=== PATIENT | female | born 1940 | race Caucasian/White ===

== ENCOUNTER 2018-04-11 06:05 | Observation (INO) | payer MEDICARE ==
[~2018-04-11] VITALS: Ht 160 cm; Wt 106.6 kg
[~2018-04-11 06:05] MED LIST: ATEN25 PO; Aspirin EC81 MG PO; B-121000 MC2 PO; CALCIUM CITRATE +D PO; CEPHALEXIN PO; CLEM1.34 PO; Isosorbide Mono60 MG PO; LEVO-T150 MCG PO; LEVO-T175 MCG PO; LISI20 PO; MULTIVITAMIN PO; NAPR500EC PO; NITR.4TPA TD; NITR.8TP TOP; NITR100CA PO; Nitroglycerin0.4 MG SL; Omeprazole20 M1 PO; PARO20 PO; Pyridium100 MG PO; SIMV10 PO; TRAM50 PO; Toviaz8 MG PO; VALA500 PO; VIT D3 PO
[2018-04-12] MEDS ORDERED: DOCU100 PO (08:06)
[2018-04-12] MEDS ORDERED: HYDR1TAB94 PO (08:07)
== END 2018-04-12 10:15 | disposition home or self-care (01) ==
LOC: ORSCMMR 06:05 → ORD 07:30 → ORSCMMR 07:30 → SURS 10:10 → ORSCMMR 10:11 → SURS 10:11
PROVIDERS: Surgery
PROC: 0HTU0ZZ Resection of Left Breast, Open Approach (ICD-10-PCS; principal; 2018-04-11 07:30)
DX: D05.12 Intraductal carcinoma in situ of left breast (principal); K21.9 Gastro-esophageal reflux disease without esophagitis; M19.90 Unspecified osteoarthritis, unspecified site; E78.5 Hyperlipidemia, unspecified; F32.9 Major depressive disorder, single episode, unspecified; I25.10 Atherosclerotic heart disease of native coronary artery without angina pectoris; E66.9 Obesity, unspecified; G47.33 Obstructive sleep apnea (adult) (pediatric); Z99.89 Dependence on other enabling machines and devices; Z85.3 Personal history of malignant neoplasm of breast; Z88.2 Allergy status to sulfonamides; Z79.899 Other long term (current) drug therapy; Z87.891 Personal history of nicotine dependence; Z98.890 Other specified postprocedural states
CPT/HCPCS: 88307; 96372; 96374; G0378; J0690; J1650; J1885; J2250; J2405; J3010; J7120

== ENCOUNTER 2018-08-06 09:39 | Day surgery (SDC) | payer MEDICARE ==
[~2018-08-06] VITALS: Ht 160 cm; Wt 108.3 kg
[~2018-08-06 09:39] MED LIST changes: +CEPH500 PO; +Calcium Citrat1 EA10 PO; +DIPH50 PO; +DOCU100 PO; +HYDR1TAB94 PO; +LETR2.5 PO; +MULTI-DAY PLUS1 EAC1 PO; +Simvastatin20 MG PO; +VITAMIN D32000 UNIT PO; +ZESTRIL40 MG PO
--- NOTE | 2018-08-06 10:51 | NUR ---
08/06/18 1051 Kanika Mahajan O2 AT 10L PER FACE MASK CO2 LINE HOOKED TO MONITOR ALSO
== END 2018-08-06 11:43 | disposition home or self-care (01) ==
LOC: ORSCSDS 09:39
PROVIDERS: Internal Medicine Gastroenterology
PROC: 0DBM8ZX Excision of Descending Colon, Via Natural or Artificial Opening Endoscopic, Diagnostic (ICD-10-PCS; principal; 2018-08-06 11:00)
DX: Z12.11 Encounter for screening for malignant neoplasm of colon (principal); K63.5 Polyp of colon; K63.89 Other specified diseases of intestine; K57.30 Diverticulosis of large intestine without perforation or abscess without bleeding; I25.10 Atherosclerotic heart disease of native coronary artery without angina pectoris; I10 Essential (primary) hypertension; E78.5 Hyperlipidemia, unspecified; G47.33 Obstructive sleep apnea (adult) (pediatric); F32.9 Major depressive disorder, single episode, unspecified; E05.00 Thyrotoxicosis with diffuse goiter without thyrotoxic crisis or storm; Z98.84 Bariatric surgery status; Z87.891 Personal history of nicotine dependence; Z79.82 Long term (current) use of aspirin; Z79.899 Other long term (current) drug therapy; E66.01 Morbid (severe) obesity due to excess calories; Z68.41 Body mass index [BMI] 40.0-44.9, adult
CPT/HCPCS: 88305; J7120

== ENCOUNTER 2018-09-07 14:50 | Emergency (ER) | payer MEDICARE ==
[~2018-09-07] VITALS: Ht 160 cm; Wt 59.0 kg
[2018-09-07] MEDS ORDERED: DOXA4 PO (15:38)
[2018-09-07 15:43] LABS: BASOPHILS ABSOLUTE AUTO 0.02 K/mm3 (0.00-0.23); BASOPHILS PERCENT AUTO 0 % (0-2); EOSINOPHILS ABSOLUTE AUTO 0.09 K/mm3 (0.00-0.68); EOSINOPHILS PERCENT AUTO 1 % (0-6); Hematocrit 44.3 % (33.0-51.0); Hemoglobin 14.2 g/dL (11.5-16.0); IMMATURE GRAN ABSOLUTE AUTO 0.04 K/mm3 (0.00-0.10); IMMATURE GRAN PERCENT AUTO 1 % (0-1); LYMPHOCYTES ABSOLUTE AUTO 1.08 K/mm3 (0.84-5.20); LYMPHOCYTES PERCENT AUTO 17 % (21-46); MONOCYTES ABSOLUTE AUTO 0.79 K/mm3 (0.16-1.47); MONOCYTES PERCENT AUTO 12 % (4-13); Mean Corpuscular HGB 29.4 pg (26.0-34.0); Mean Corpuscular HGB Conc 32.1 g/dL (31.5-36.5); Mean Corpuscular Volume 92 fL (80-100); Mean Platelet Volume 9.5 fL (9.1-12.4); NEUTROPHILS ABSOLUTE AUTO 4.52 K/mm3 (1.96-9.15); NEUTROPHILS PERCENT AUTO 69 % (41-73); Platelet Count 335 K/mm3 (150-400); RDW Coefficient Variation 13.3 % (11.7-14.2); Red Blood Cell Count 4.83 M/mm3 (3.80-5.20); White Blood Cell Count 6.54 K/mm3 (4.00-11.30)
[2018-09-07 16:09] LABS: Bilirubin, Total 0.8 mg/dL (0.1-1.0); Bun/Creatinine Ratio 15.3 (12.0-20.0); Calcium, Blood 8.9 mg/dL (8.5-10.1); Creatinine, Blood 1.31 mg/dL (0.40-1.00); Globulin, Blood 4.1 g/dL (2.2-4.0); Potassium, Blood 3.7 mmol/L (3.5-5.5); Total Protein, Blood 8.1 g/dL (6.4-8.2)
[2018-09-07] MEDS ORDERED: ONDA4ODT MM (19:10)
== END 2018-09-07 19:25 | disposition home or self-care (01) ==
LOC: ER 14:50
PROVIDERS: Emergency Medicine
DX: R11.2 Nausea with vomiting, unspecified (principal); R19.7 Diarrhea, unspecified; E86.0 Dehydration; Z88.2 Allergy status to sulfonamides; Z79.899 Other long term (current) drug therapy; Z79.82 Long term (current) use of aspirin; Z87.891 Personal history of nicotine dependence
CPT/HCPCS: 36415; 74176; 80053; 83690; 85025; 96361; 96374; 99284-25; J2405; J7120

== ENCOUNTER 2019-04-10 08:05 | Day surgery (SDC) | payer MEDICARE ==
[~2019-04-10] VITALS: Ht 160 cm; Wt 111.0 kg
[~2019-04-10 08:05] MED LIST changes: +CARV3.125 PO; +DOXA4 PO; +ONDA4ODT MM
--- NOTE | 2019-04-10 14:05 | NUR ---
DISCHARGE PT REMAINED A&OX3 AND DENIED ANY PAIN DURING RECOVERY. PT ABLE TO DRESS SELF WITH HELP FROM FAMILY MEMBER. IV DC'D WITH CANULA IN TACT. DISCHARGE PAPERWORK GONE OVER WITH PT AND FAMILY MEMBER. PT AND FAMILY MEMBER VERBALLY STATED THE UNDERSTANDING OF THE DISCHARGE EDUCATION GIVEN AND DENIED ANY QUESTIONS AT THIS TIME. PT WHEELED OUT BY ALTHEA CARREON.
--- NOTE | 2019-04-10 15:16 | NUR ---
TR BAND REMOVED AND REPLACED WITH A CLOTH DOT AND WHITE BOARD. R RADIAL SITE CDI-NO HEAMTOMA NOTED ON DICHARGE.
== END 2019-04-10 14:10 | disposition home or self-care (01) ==
LOC: MHTC 08:05
DX: I25.10 Atherosclerotic heart disease of native coronary artery without angina pectoris (principal); M19.90 Unspecified osteoarthritis, unspecified site; E66.9 Obesity, unspecified; E78.5 Hyperlipidemia, unspecified; I10 Essential (primary) hypertension; E89.0 Postprocedural hypothyroidism; G47.33 Obstructive sleep apnea (adult) (pediatric); Z99.89 Dependence on other enabling machines and devices; Z79.82 Long term (current) use of aspirin; Z87.891 Personal history of nicotine dependence; Z88.2 Allergy status to sulfonamides
CPT/HCPCS: 85347; 93454; 93571; 99152; 99153; C1769; C1887; C1894; J1644; J2250; J3010; J7030; Q9967

== ENCOUNTER → 2019-10-28 | Outpatient (CLI) | payer MEDICARE ==
[2019-10-29 19:25] LABS: Adenovirus F 40/41 Not Detected (NOT DETECT); Astrovirus Not Detected (NOT DETECT); Campylobacter Sp Not Detected (NOT DETECT); Cryptosporidium Not Detected (NOT DETECT); Cyclospora Cayetanensis Not Detected (NOT DETECT); E. Coli O157 Not Detected (NOT DETECT); Entamoeba Histolytica Not Detected (NOT DETECT); Enteroaggregative E. coli-EAEC Not Detected (NOT DETECT); Enteropathogenic E. coli-EPEC Not Detected (NOT DETECT); Enterotoxigenic E. coli-ETEC Not Detected (NOT DETECT); Giardia Lamblia Not Detected (NOT DETECT); Norovirus GI/GII Not Detected (NOT DETECT); Plesiomonas Shigelloides Not Detected (NOT DETECT); Rotavirus A Not Detected (NOT DETECT); Salmonella Sp Not Detected (NOT DETECT); Sapovirus Not Detected (NOT DETECT); Shiga Toxin-prod E. coli-STEC Not Detected (NOT DETECT); Shigella/Enteroin E. coli-EIEC Not Detected (NOT DETECT); Vibrio Cholerae Not Detected (NOT DETECT); Vibrio Sp Not Detected (NOT DETECT); Yersinia Enterocolitica Not Detected (NOT DETECT)
== END | disposition home or self-care (01) ==
LOC: LAB 18:00 → LAB SHORT 18:00
PROVIDERS: Physician Assistant
DX: E78.00 Pure hypercholesterolemia, unspecified (principal); R19.7 Diarrhea, unspecified; R74.8 Abnormal levels of other serum enzymes
CPT/HCPCS: 0097U; 87324

== ENCOUNTER → 2021-04-13 | Outpatient (CLI) | payer MEDICARE ==
[2021-04-13 17:04] LABS: U Amphetamine Screen Not Detected; U Barbituate Screen Not Detected; U Benzodiazapine Screen Not Detected; U Buprenorphine Screen Not Detected; U Cannabinoids Screen Not Detected; U Cocaine Screen Not Detected; U Methadone Screen Not Detected; U Methamphetamine Screen Not Detected; U Opiates Screen Not Detected; U Oxycodone Screen Not Detected; U Phencyclidine Screen Not Detected; U Propoxyphene Screen Not Detected
== END | disposition home or self-care (01) ==
LOC: LAB SHORT 10:50
PROVIDERS: Family Medicine
DX: Z51.81 Encounter for therapeutic drug level monitoring (principal); Z79.891 Long term (current) use of opiate analgesic

== ENCOUNTER → 2021-07-04 | Outpatient (CLI) | payer MEDICARE ==
[2021-07-04 16:02] LABS: U Amphetamine Screen Not Detected; U Barbituate Screen Not Detected; U Benzodiazapine Screen Not Detected; U Cocaine Screen Not Detected; U Methamphetamine Screen Not Detected
[2021-07-04 16:03] LABS: U Buprenorphine Screen Not Detected; U Cannabinoids Screen Not Detected; U Methadone Screen Not Detected; U Opiates Screen Not Detected; U Oxycodone Screen Not Detected; U Phencyclidine Screen Not Detected; U Propoxyphene Screen Not Detected
== END ==
LOC: LAB 15:18 → LAB SHORT 15:18
PROVIDERS: Family Medicine
DX: Z51.81 Encounter for therapeutic drug level monitoring (principal); Z79.891 Long term (current) use of opiate analgesic

== ENCOUNTER 2022-02-24 16:35 | Emergency (ER) | payer MEDICARE ==
[~2022-02-24] VITALS: Ht 157.5 cm; Wt 108.9 kg
== END 2022-02-24 18:54 | disposition home or self-care (01) ==
LOC: ER 16:35
DX: S00.03XA Contusion of scalp, initial encounter (principal); S40.012A Contusion of left shoulder, initial encounter; Z88.2 Allergy status to sulfonamides; Z79.899 Other long term (current) drug therapy; Z79.82 Long term (current) use of aspirin; Z85.3 Personal history of malignant neoplasm of breast; W18.30XA Fall on same level, unspecified, initial encounter
CPT/HCPCS: 70450; 72125; 73030; 99284-25; A9270

== ENCOUNTER → 2022-03-09 | Outpatient (CLI) | payer MEDICARE ==
[2022-03-09 11:37] LABS: U Amphetamine Screen Not Detected; U Barbituate Screen Not Detected; U Benzodiazapine Screen Not Detected; U Buprenorphine Screen Not Detected; U Cannabinoids Screen Not Detected; U Cocaine Screen Not Detected; U Methadone Screen Not Detected; U Methamphetamine Screen Not Detected; U Opiates Screen Not Detected; U Oxycodone Screen Not Detected; U Phencyclidine Screen Not Detected; U Propoxyphene Screen Not Detected
== END | disposition home or self-care (01) ==
LOC: LAB SHORT 09:25
PROVIDERS: Family Medicine
DX: Z51.81 Encounter for therapeutic drug level monitoring (principal); Z79.891 Long term (current) use of opiate analgesic

== ENCOUNTER 2022-05-18 09:53 | Day surgery (SDC) | payer MEDICARE ==
[~2022-05-18] VITALS: Ht 160 cm; Wt 112.0 kg
[2022-05-18] MEDS ORDERED: TORSE20 PO (09:55)
[2022-05-18] MEDS ORDERED: POTA10T PO (09:56)
[2022-05-18] MEDS ORDERED: METO25ER PO (09:57)
[2022-05-18] MEDS ORDERED: 1/2 NS 250ml250 ML (09:57)
[2022-05-18] MEDS ORDERED: ALBU90OI INH (09:58)
[2022-05-18] MEDS ORDERED: ANASTROZOLE1 M7 PO (09:59)
[2022-05-18] MEDS ORDERED: MELATONIN10 M6 PO (10:01)
[2022-05-18] MEDS ORDERED: Flovent Disku250 MCG INH (10:03)
[2022-05-18] MEDS ORDERED: [UNRECOGNIZED DRUG - OTHER] UD (10:03)
--- NOTE | 2022-05-18 12:53 | NUR ---
PT RETURNED TO RECOVERY ROOM IN RECLINER. RIGHT RADIAL TR BANDS SITE SOFT NON-TENDER WITH NO HEMATOMA, NO PULSATILE BLEEDING AND WRIST BOARD IN PLACE. THERE ARE TWO TR BANDS IN PLACE; RIGHT WRIST AND PROX TO RIGHT WRIST. PT DENIES CHEST PAIN. PT'S IS IN THE ROOM. CALL LIGHT IN REACH.
--- NOTE | 2022-05-18 14:05 | NUR ---
FULL REPORT PROVIDED HOMER JACOB TO ASSUME CARE OF PT IN RECOVERY ROOM.
== END 2022-05-18 15:53 | disposition home or self-care (01) ==
LOC: MHTC 09:53
PROC: 4A023N7 Measurement of Cardiac Sampling and Pressure, Left Heart, Percutaneous Approach (ICD-10-PCS; principal; 2022-05-18)
PROC: B2111ZZ Fluoroscopy of Multiple Coronary Arteries using Low Osmolar Contrast (ICD-10-PCS; principal; 2022-05-18)
DX: R07.89 Other chest pain (principal); R06.02 Shortness of breath; R94.39 Abnormal result of other cardiovascular function study; I25.10 Atherosclerotic heart disease of native coronary artery without angina pectoris; I10 Essential (primary) hypertension; E78.5 Hyperlipidemia, unspecified; G47.33 Obstructive sleep apnea (adult) (pediatric); J45.909 Unspecified asthma, uncomplicated; E03.9 Hypothyroidism, unspecified; Z88.2 Allergy status to sulfonamides; Z79.899 Other long term (current) drug therapy
CPT/HCPCS: 76937; 85347; 92978; 93454; 93571; 99152; 99153; A9270; C1769; C1887; C1894; J0360; J1644; J2250; J3010; J7030; J7040; Q9967

== ENCOUNTER → 2022-07-03 | Outpatient (CLI) | payer MEDICARE ==
[~2022-07-03] MED LIST changes: +1/2 NS 250ml250 ML; +ALBU90OI INH; +ANASTROZOLE1 M7 PO; +Flovent Disku250 MCG INH; +MELATONIN10 M6 PO; +METO25ER PO; +POTA10T PO; +TORSE20 PO; +[UNRECOGNIZED DRUG - OTHER] UD
[2022-07-04 17:10] LABS: U Amphetamine Screen Not Detected; U Barbituate Screen Not Detected; U Benzodiazapine Screen Not Detected; U Buprenorphine Screen Not Detected; U Cannabinoids Screen Not Detected; U Cocaine Screen Not Detected; U Methadone Screen Not Detected; U Methamphetamine Screen Not Detected; U Opiates Screen Not Detected; U Oxycodone Screen Not Detected; U Phencyclidine Screen Not Detected; U Propoxyphene Screen Not Detected
== END | disposition home or self-care (01) ==
LOC: LAB SHORT 10:51
PROVIDERS: Family Medicine
DX: Z51.81 Encounter for therapeutic drug level monitoring (principal); Z79.899 Other long term (current) drug therapy

== ENCOUNTER → 2022-11-01 | Outpatient (CLI) | payer MEDICARE ==
[2022-11-01 16:41] LABS: U Amphetamine Screen Not Detected; U Barbituate Screen Not Detected; U Benzodiazapine Screen Not Detected; U Buprenorphine Screen Not Detected; U Cannabinoids Screen Not Detected; U Cocaine Screen Not Detected; U Methadone Screen Not Detected; U Methamphetamine Screen Not Detected; U Opiates Screen DETECTED; U Oxycodone Screen Not Detected; U Phencyclidine Screen Not Detected; U Propoxyphene Screen Not Detected
== END | disposition home or self-care (01) ==
LOC: LAB SHORT 09:30 → LAB 09:30
PROVIDERS: Family Medicine
DX: Z51.81 Encounter for therapeutic drug level monitoring (principal); Z79.891 Long term (current) use of opiate analgesic

== ENCOUNTER → 2024-03-17 | Outpatient (CLI) | payer MEDICARE | END | disposition home or self-care (01) | LOC: LAB 19:31 → LAB SHORT 19:31 | DX: R30.0 Dysuria (principal) | CPT/HCPCS: 87086 ==

== ENCOUNTER → 2024-08-13 | Outpatient (CLI) | payer MEDICARE | LOC: LAB 11:21 → LAB SHORT 11:21 | DX: R30.0 Dysuria (principal) | CPT/HCPCS: 87077; 87086; 87186 ==

== ENCOUNTER → 2025-02-05 | Outpatient (CLI) | payer MEDICARE ==
[2025-02-05 10:40] LABS: Source, Urine Clean Catch
[2025-02-05 10:45] LABS: Red Blood Cells, Urine 0-2 /hpf (0-2); White Blood Cells, Urine TNTC /hpf (0-5)
== END ==
LOC: LAB 10:38 → LAB SHORT 10:38
PROVIDERS: Emergency Medicine
DX: R30.0 Dysuria (principal)
CPT/HCPCS: 81015; 87077; 87086; 87186

== ENCOUNTER 2025-05-20 08:29 | Inpatient (IN) | payer MEDICARE ==
[2025-05-20] VITALS (14 sets, daily range): BP systolic 133–171; BP diastolic 58–98
[~2025-05-20] VITALS: Ht 154.9 cm; Wt 80.0 kg
[~2025-05-20 08:29] MED LIST changes: +DIPH25 PO; +Flonase 0.05% N16 GM; -LEVO-T150 MCG PO; +LEVSOD150 PO; +LISI5 PO; +TRELEGY ELLIPT1 EAC1 INH; +UP4 PROBIOTICS1 EAC8 PO; +WEGOVY1 MG/0.5 M SC; -ZESTRIL40 MG PO
[2025-05-20] MEDS ORDERED: CeFAZolin Sodium 2,000 MG in NS 100 ML IV SCH (08:40)
[2025-05-20] MEDS ORDERED: CeFAZolin Sodium 2,000 MG VIAL ONE (10:29)
[2025-05-20] MEDS ORDERED: Bupivacaine 0.5% W/EPI 1:200000 SDV 30 ML Vial ONE (12:21)
[2025-05-20] MEDS ORDERED: Rocuronium Bromide 10 MG/ML 5ML Injection IV ONE (12:28)
[2025-05-20] MEDS ORDERED: FentaNYL Citrate 50 MCG/ML 2 ML Injection ONE (12:28)
--- NOTE | 2025-05-20 13:50 | NUR ---
1130 Patient confirms NPO status and agrees with scheduled surgery. History, Chart, Medications and Allergies reviewed before start of procedure.Pre-Op teaching done. Pt verbalizes understanding. Patient reports completing Chlorhexadine shower X2 prior to admission to hospital. AT BEDSIDE
[2025-05-20] MEDS ORDERED: Ondansetron HCl 2 MG / ML 2ML Vial ONE (14:08)
[2025-05-20] MEDS ORDERED: Ketorolac Tromethamine 30mg Vial ONE (14:13)
[2025-05-20] MEDS ORDERED: Sugammadex Sodium 200 MG/2ML SDV (100 MG/ML) ONE (14:14)
--- NOTE | 2025-05-20 15:11 | NUR ---
ARRIVAL TO UNIT PT ARRIVED TO UNIT AT APPROX 1500. A/OX4 PT IS [place] BUT DOES WELL READING LIPS. VSS, CALL LIGHT IN REACH.
[2025-05-20] MEDS ORDERED: HYDROcodone 5-APAP 325 TAB PO PRN (15:20)
[2025-05-20] MEDS ORDERED: Morphine Sulfate 4 MG/1 ML Injection IV PRN (15:20)
--- NOTE | 2025-05-20 18:07 | NUR ---
SHIFT SUMMARY PT IS POD R MASECTOMY PT IS TOLERATING PO INTAKE, DENIES N/V. PT IS A/OX4 BUT [place]. HEARING AIDS BROUGHT IN BY PT FAMILY. BIPAP SET UP BY RT. PT IS SBA W/CANE. PT AMBULATES W/ CANE AT BASELINE. SURGICAL SITES C/D/I. TWO GEORGE DRAINS FROM RUQ, MINIMAL OUTPUT. PT IS VOIDING WELL. PAIN IS MANAGED. CALL LIGHT IN REACH.
--- NOTE | 2025-05-20 19:25 | NUR ---
ASSUMED CARE POD 0 S/P RIGHT MASTECTOMY, DRESSING AND BREAST BINDER IN PLACE- CDI. GEORGE DRAINS X 2 DRAINING SANGUINEOUS FLUID. PT A/OX4, VSS. DENIES PAIN. REPORTS AMBULATING TO BATHROOM WITH SBA AND HER CANE PRIOR TO SHIFT CHANGE. HAS VOIDED. IS [place]. DENIES NEEDS. HAS HOME CPAP IN USE. CALL LIGHT IN REACH.
[2025-05-21 00:34] VITALS: BP 150/64
[2025-05-21 04:52] VITALS: BP 135/72
--- NOTE | 2025-05-21 05:43 | NUR ---
SHIFT SUMMARY POD 1 RIGHT MASTECTOMY. DRESSING CDI WITH BREAST BINDER IN PLACE. GEORGE COMPRESSED DRAINING SS FLUID. IS UP IN ROOM WITH MIN ASSISTANCE AND WALKING TO BATHROOM, IS VOIDING. USES CANE AT BASELINE. IS A/OX4 WITH VSS, ON RA. PAIN MANAGED PER EMAR. DRINKING FLUIDS. IS CURRENTLY RESTING IN BED WTIH EYES CLOSED, RESP EVEN AND CALL LIGHT IN REACH. WILL GIVE REPORT TO ONCOMING RN.
[2025-05-21 07:16] VITALS: BP 138/62
[2025-05-21] MEDS ORDERED: HYDR1TAB94 PO (10:22)
--- NOTE | 2025-05-21 10:44 | NUR ---
DISCHARGE NOTE A/OX4. PT WAS ABLE TO DEMONSTRATE HOW TO EMPTY THE GEORGE DRAIN. PT AND SPOUSE VERBALIZED UNDERSTANDING OF DC INSTRUCTIONS. IV REMOVED, TOLERATING PO INTAKE. PAIN MANAGED PER EMAR. DENIES N/V. SURGICAL SITE C/D/I. DRAIN SITE DRESSING CHANGED BY SURGEON THIS AM. ESCORTED OUT VIA WC AT 1100.
== END 2025-05-21 10:56 | disposition home or self-care (01) | DRG 581 ==
LOC: SURS 08:29
PROVIDERS: ADMIT Surgery
PROC: 3E03329 Introduction of Other Anti-infective into Peripheral Vein, Percutaneous Approach (ICD-10-PCS; 2025-05-20)
PROC: 07B50ZX Excision of Right Axillary Lymphatic, Open Approach, Diagnostic (ICD-10-PCS; principal; 2025-05-20 12:00)
PROC: 0HTT0ZZ Resection of Right Breast, Open Approach (ICD-10-PCS; principal; 2025-05-20 12:00)
DX: C50.211 Malignant neoplasm of upper-inner quadrant of right female breast (principal); I35.0 Nonrheumatic aortic (valve) stenosis; J45.909 Unspecified asthma, uncomplicated; F32.A Depression, unspecified; I25.10 Atherosclerotic heart disease of native coronary artery without angina pectoris; E78.5 Hyperlipidemia, unspecified; I11.0 Hypertensive heart disease with heart failure; I50.9 Heart failure, unspecified; Z96.652 Presence of left artificial knee joint; E03.9 Hypothyroidism, unspecified; E66.9 Obesity, unspecified; M19.90 Unspecified osteoarthritis, unspecified site; G47.33 Obstructive sleep apnea (adult) (pediatric); M81.0 Age-related osteoporosis without current pathological fracture; Z85.3 Personal history of malignant neoplasm of breast; Z90.12 Acquired absence of left breast and nipple; Z98.84 Bariatric surgery status; Z99.89 Dependence on other enabling machines and devices; Z95.5 Presence of coronary angioplasty implant and graft; Z90.49 Acquired absence of other specified parts of digestive tract; Z98.890 Other specified postprocedural states; Z90.710 Acquired absence of both cervix and uterus; Z79.51 Long term (current) use of inhaled steroids; Z79.899 Other long term (current) drug therapy; Z79.890 Hormone replacement therapy; Z88.2 Allergy status to sulfonamides; Z87.891 Personal history of nicotine dependence; Z17.0 Estrogen receptor positive status [ER+]
CPT/HCPCS: 88307; 94762; A9270; J0690; J1885; J2405; J2704; J3010; Q9968